=== PATIENT | female | born 1995 | race Caucasian/White ===

== ENCOUNTER → 2020-07-30 | Outpatient (CLI) | payer OTHER ==
[~2020-07-30] VITALS: Ht 170.2 cm; Wt 79.4 kg
[~2020-07-30] MED LIST: COLACE 100MG C100 MG PO; IBUPROFEN600 MG PO; NORCO 5-325 TA1 EACH PO
== END ==
LOC: GENOP 17:06
DX: O99.891 Other specified diseases and conditions complicating pregnancy (principal); R10.30 Lower abdominal pain, unspecified; M54.9 Dorsalgia, unspecified; M41.9 Scoliosis, unspecified; Q21.1 Atrial septal defect; O99.332 Smoking (tobacco) complicating pregnancy, second trimester; F17.210 Nicotine dependence, cigarettes, uncomplicated; O99.352 Diseases of the nervous system complicating pregnancy, second trimester; G43.909 Migraine, unspecified, not intractable, without status migrainosus; Z3A.27 27 weeks gestation of pregnancy; Z79.899 Other long term (current) drug therapy
CPT/HCPCS: 81001; 82731; G0463

== ENCOUNTER 2020-10-14 16:52 | Inpatient (IN) | payer OTHER ==
[~2020-10-14] VITALS: Ht 170.2 cm; Wt 79.8 kg
[2020-10-14 17:49] LABS: HEMOGLOBIN 12.4 gm/dl (12.3-15.3); RED BLOOD COUNT 3.81 M/UL (4.00-5.10); WHITE BLOOD COUNT 9.5 K/UL (4.5-11.0)
[2020-10-15] MEDS ORDERED: GLUCOPHAGE 500500 MG GT (10:09)
[2020-10-15] MEDS ORDERED: PRENATAL TABLE1 EAC1 PO (10:10)
[2020-10-16 05:33] LABS: HEMOGLOBIN 12.3 gm/dl (12.3-15.3)
[2020-10-17] MEDS ORDERED: IBUPROFEN600 MG PO (09:04)
[2020-10-17] MEDS ORDERED: DOCUSATE SODIU100 MG PO (09:04)
== END 2020-10-17 14:53 | disposition home or self-care (01) | DRG 807 ==
LOC: GENOP 16:52 → OB 17:12
PROVIDERS: Obstetrics & Gynecology; ADMIT Obstetrics & Gynecology
PROC: 10907ZC Drainage of Amniotic Fluid, Therapeutic from Products of Conception, Via Natural or Artificial Opening (ICD-10-PCS; principal; 2020-10-15)
PROC: 10E0XZZ Delivery of Products of Conception, External Approach (ICD-10-PCS; 2020-10-15)
PROC: 0HQ9XZZ Repair Perineum Skin, External Approach (ICD-10-PCS; 2020-10-15)
PROC: 4A1HXCZ Monitoring of Products of Conception, Cardiac Rate, External Approach (ICD-10-PCS; 2020-10-15)
PROC: 3E033VJ Introduction of Other Hormone into Peripheral Vein, Percutaneous Approach (ICD-10-PCS; 2020-10-15)
PROC: 00HU33Z Insertion of Infusion Device into Spinal Canal, Percutaneous Approach (ICD-10-PCS; 2020-10-15)
PROC: 3E0R3BZ Introduction of Anesthetic Agent into Spinal Canal, Percutaneous Approach (ICD-10-PCS; 2020-10-15)
DX: O24.425 Gestational diabetes mellitus in childbirth, controlled by oral hypoglycemic drugs (principal); Z37.0 Single live birth; Z3A.38 38 weeks gestation of pregnancy; O70.0 First degree perineal laceration during delivery; Z20.822 Contact with and (suspected) exposure to COVID-19
CPT/HCPCS: 36415; 81001; 82800; 82962; 85014; 85018; 85025; G0378; J2001; J2590; J2795; J7030